=== PATIENT | male | born 1980 | race Caucasian/White ===

== ENCOUNTER 2023-07-03 10:54 | Emergency (ER) | payer SELFPAY ==
[2023-07-03 11:13] VITALS: BP 120/79; PULSE 67; RESP 18; TEMP 98.4; BMI 29.0
== END 2023-07-03 14:18 | disposition home or self-care (01) ==
LOC: JERFT 10:54
DX: J34.89 Other specified disorders of nose and nasal sinuses (principal)
CPT/HCPCS: 99283-25